=== PATIENT | male | born 1990 | race Caucasian/White ===

== ENCOUNTER 2022-05-29 03:46 | Emergency (ER) | payer BC ==
[~2022-05-29] VITALS: Ht 165.1 cm; Wt 81.6 kg
[2022-05-29 04:08] VITALS: BP 140/80
[2022-05-29] MEDS ORDERED: LIDOCAINE VISCOUS 2% UD 15 ML UDC ONE (04:49)
[2022-05-29] MEDS ORDERED: METH4TAB17 PO (05:05)
[2022-05-29] MEDS ORDERED: LIDOCAINE VISCOUS 2% UD 15 ML UDC PO ONE (05:30)
== END 2022-05-29 05:10 | disposition home or self-care (01) ==
LOC: ER 03:46
DX: U07.1 COVID-19 (principal); J02.9 Acute pharyngitis, unspecified